=== PATIENT | female | born 1960 | race Caucasian/White ===

== ENCOUNTER 2023-08-02 12:47 | Outpatient (CLI) | payer OTHER, SELFPAY ==
--- NOTE | ~2023-08-02 | XR_ITS ---
EXAM: XR sacroiliac joints min 3V DATE: 08/02/2023 13:27 HISTORY: Sacrococcygeal disorders, not elsewhere classified . COMPARISON: None available. FINDINGS: Normal mineralization. No fracture or dislocation. No lytic or blastic lesion. Degenerativ e change in the lumbar spine. Mild degenerative changes in the bilateral SI joints and left hip. Mode rate degenerative change in the right hip. No erosion or periosteal change. Soft tissues within kareen l limits. IMPRESSION: Moderate right hip osteoarthritis. 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 L umbar degenerative disc disease. Reviewed, dictated and finalized at location K. IMPRESSION: Moderate right hip osteoarthritis. Mild left hip and bilateral SI j oint osteoarthritis. Lumbar degenerative disc disease.
--- NOTE | ~2023-08-02 | MR_ITS ---
EXAMINATION: MR lumbar spine wo con DATE: 08/02/2023 13:15 INDICATION: Lumbar radicular pain. Right hip and leg pain. TECHNIQUE: Magnetic resonance imaging (MRI) of the lumbar spine was performed without intravenous con trast. Sequences included sagittal T2-weighted FSE, sagittal T2-weighted FS FSE, sagittal T1-weighted FSE, and axial T2-weighted FSE. COMPARISON: None FINDINGS: There is 3 degrees dextrocurvature of lumbar spine. Vertebral body heights are normal. Ther e is mildly decreased disc height at L1-L2, L3-L4, and L4-L5 and moderately decreased disc height at L5-S1. The distal spinal cord signal intensity is normal. The conus medullaris is at L1-L2. There is a 2.5 cm cyst in right kidney. The following disc levels are specifically discussed: L1-L2: The disc is bulging. There is mild bilateral facet joint osteoarthritis. There is mild bilater al neural foraminal stenosis. There is mild central canal stenosis. L2-L3: The disc does not extend beyond the endplate margin. There is mild bilateral facet joint osteo arthritis. There is no neural foraminal stenosis. There is no central canal stenosis. L3-L4: The disc is bulging. There is mild bilateral facet joint osteoarthritis. There is mild bilater al neural foraminal stenosis. There is mild central canal stenosis. L4-L5: The disc is bulging and has an annular fissure. There is severe bilateral facet joint osteoart hritis. There is mild bilateral neural foraminal stenosis. There is mild central canal stenosis. L5-S1: The disc is bulging and has an annular fissure. There is severe bilateral facet joint osteoart hritis. There is mild bilateral neural foraminal stenosis. There is mild central canal stenosis. IMPRESSION: 1. Moderate lumbar spondylosis. Reviewed, dictated and finalized at location A.
== END 2023-08-02 12:48 ==
LOC: MICIMG 12:49
PROVIDERS: PCP Internal Medicine; Visit Provider Nurse Practitioner Family
DX: M53.3 Sacrococcygeal disorders, not elsewhere classified (principal); M16.11 Unilateral primary osteoarthritis, right hip; M51.36 Other intervertebral disc degeneration, lumbar region; M43.06 Spondylolysis, lumbar region
CPT/HCPCS: 72148; 72202